=== PATIENT | male | born 1975 ===

== ENCOUNTER 2017-11-13 09:01 | Emergency (ER) | payer OTHER ==
[~2017-11-13] VITALS: Ht 175.3 cm; Wt 125.2 kg
[2017-11-13] MEDS ORDERED: Augmentin 875-1 EACH PO (09:43)
[2017-11-13] MEDS ORDERED: PSEU120ER PO (09:43)
[2017-11-13] MEDS ORDERED: Flonase 0.05% N16 GM (09:43)
== END 2017-11-13 10:13 | disposition home or self-care (01) ==
LOC: ER 09:01
DX: J32.9 Chronic sinusitis, unspecified (principal); J02.9 Acute pharyngitis, unspecified; Z88.6 Allergy status to analgesic agent; Z87.891 Personal history of nicotine dependence; Z79.2 Long term (current) use of antibiotics
CPT/HCPCS: 99283

== ENCOUNTER 2018-10-10 09:59 | Emergency (ER) | payer OTHER ==
[~2018-10-10] VITALS: Ht 175.3 cm; Wt 107.0 kg
[~2018-10-10 09:59] MED LIST: Augmentin 875-1 EACH PO; Flonase 0.05% N16 GM; PSEU120ER PO
[2018-10-10] MEDS ORDERED: Prednisone20 MG PO (10:21)
[2018-10-10] MEDS ORDERED: CYCL10 PO (10:21)
[2018-10-10] MEDS ORDERED: HYDR1TAB94 PO (10:21)
== END 2018-10-10 10:27 | disposition home or self-care (01) ==
LOC: ER 09:59
DX: M54.41 Lumbago with sciatica, right side (principal); Z88.8 Allergy status to other drugs, medicaments and biological substances; Z87.891 Personal history of nicotine dependence
CPT/HCPCS: 99282

== ENCOUNTER 2018-10-14 08:22 | Emergency (ER) | payer OTHER ==
[~2018-10-14] VITALS: Ht 175.3 cm; Wt 102.5 kg
[~2018-10-14 08:22] MED LIST changes: +CYCL10 PO; +HYDR1TAB94 PO; +Prednisone20 MG PO
[2018-10-14] MEDS ORDERED: BENZ100A PO (09:14)
== END 2018-10-14 09:18 | disposition home or self-care (01) ==
LOC: ER 08:22
DX: J06.9 Acute upper respiratory infection, unspecified (principal)
CPT/HCPCS: 99283

== ENCOUNTER 2020-06-15 11:33 | Emergency (ER) | payer OTHER ==
[~2020-06-15] VITALS: Ht 175.3 cm; Wt 124.3 kg
[~2020-06-15 11:33] MED LIST changes: +BENZ100A PO
[2020-06-15] MEDS ORDERED: KETO10 PO (12:45)
[2020-06-15] MEDS ORDERED: ERYT1OIN LEFTEYE (12:45)
== END 2020-06-15 13:40 | disposition home or self-care (01) ==
LOC: ER 11:33
DX: M19.071 Primary osteoarthritis, right ankle and foot (principal); H00.015 Hordeolum externum left lower eyelid; Z88.6 Allergy status to analgesic agent; Z87.891 Personal history of nicotine dependence
CPT/HCPCS: 96372; 99282-25; J1885

== ENCOUNTER 2021-04-12 09:37 | Emergency (ER) | payer OTHER ==
[~2021-04-12] VITALS: Ht 175.3 cm; Wt 105.7 kg
[~2021-04-12 09:37] MED LIST changes: +ERYT1OIN LEFTEYE; +KETO10 PO
[2021-04-12] MEDS ORDERED: RAW CALCIUM (10:18)
[2021-04-12] MEDS ORDERED: TRAM50 PO (11:08)
== END 2021-04-12 11:27 | disposition home or self-care (01) ==
LOC: ER 09:37
DX: S43.51XA Sprain of right acromioclavicular joint, initial encounter (principal); Z88.6 Allergy status to analgesic agent; X50.0XXA Overexertion from strenuous movement or load, initial encounter
CPT/HCPCS: 73030; 99283-25